=== PATIENT | female | born 1945 | race Caucasian/White ===

== ENCOUNTER 2023-08-18 06:12 | Day surgery (SDC) | payer MEDICARE, OTHER, SELFPAY ==
[2023-08-18] VITALS (16 sets, daily range): BP systolic 120–170; BP diastolic 60–89; BMI 31.2
[2023-08-18 07:06] LABS: Glucose - Point of Care 102 mg/dl (70-99)
[2023-08-18] MEDS: NSS 255 ML IV (07:10)
[2023-08-18 08:27] LABS: ACT-LR - POC 281 Seconds (116-155)
[2023-08-18 09:09] LABS: ACT-LR - POC > 397 Seconds (116-155)
[2023-08-18] MEDS: ZOFRAN 4 MG IV (09:33)
[2023-08-18] MEDS: NSS 640 IV (09:34)
[2023-08-18] MEDS: MORPHINE SULFATE 2 MG IV (09:35)
--- NOTE | 2023-08-18 10:28 | ITS.CL.ANGIO ---
[employer] - Angioplasty
Angioplasty
Procedure Report:
Cardiac Catheterization/PCI Report
Patient was correctly identified and procedure time out was taken. Informed consent signed. Correct site and side were identified and marked, if applicable. Equipment at bedside. Correct patient position. Relevant images and results reviewed prior
to procedure. Patient history and medications reviewed. Informed consent process consisted of informing the patient of risks of the procedure including, but not limited to infection, bleeding, , myocardial infarction, stroke, pericardial
tamponade, need for further procedures. Benefits of the procedure include relief of angina, improvement of heart function, improvement of quality of life. The possibility of needing transfer to higher level of care was also discussed. After the
explanation of risks and benefits, the patient agreed to proceed.
Date of Procedure: [08/18/2023]
Primary Care Physician: Unknown
Referring Physician: Dr. Nubia Coker
Procedures performed:
1: Coronary angiography
2: PCI with HARMAN to the right coronary artery.
3: Conscious sedation
INDICATION: Worsening angina
ACCESS: Martin's test was performed prior to the procedure and the patient was found to be suitable for right radial access. The patient was prepped and draped in usual sterile fashion. A 6 Greek sheath was placed in the right radial artery using
the Seldinger [place] [address] units of heparin was given for anticoagulation. A cocktail of 2 mg of verapamil and 200 mcg of nitroglycerin was administered preprocedure.
HEMODYNAMIC FINDINGS (mmHg):
Ao(s/d,m): 158/90 with a mean of 111
ANGIOGRAPHIC FINDINGS:
Percutaneous Coronary Intervention (PCI) description:�This was a planned PCI.
Using an AR-1 guiding catheter, right coronary artery was engaged. Right coronary angiography was performed. There is a 20 to 30% in-stent restenosis of the previously placed right coronary artery stent. In the distal RCA, there was a 90% focal
stenosis with an area of poststenotic dilatation just distally to the lesion. Large PDA and large PLV were free of disease.
Using a run-through wire, the lesion was successfully crossed. We then took a 2.0 x 15 mm balloon to perform a first predilatation. The lesion expanded nicely. To better prepped the lesion, we took a 2.5 x 15 mm noncompliant balloon up to 16 harinder.
Post balloon inflation there is no dissection or perforation. We then took a 3.0 x 23 mm Xience drug-eluting stent and successfully deployed at across the lesion taking care to overlap with the previously placed stent. The stent was then
postdilated using a 3.25 x 20 mm noncompliant balloon to 18 harinder. Post balloon deployment, there is no dissection or perforation with SCOTTIE-3 flow.
Culprit lesion: RCA
Guide catheter: AR-1
Stent placed: 3.0 x 23 mm
Pre % stenosis: 90%
Pre SCOTTIE flow: 3
Post PCI residual stenosis: 0%
Post PCI SCOTTIE flow: 3
DAP (cGy-cm2): 38.4782
Flouroscopy Time (min): 20.8 minutes
Radiation Dose: 633.79 mGy
Contrast Used: 100 cc
Complications: None
Closure device: None. A TR band was applied for hemostasis at the right wrist.
ASSESSMENT:
1: Successful PCI with HARMAN to the right coronary artery lesion with excellent angiographic result.
2: Conscious sedation administration
CONCLUSIONS and RECOMMENDATIONS:
1: Continue aspirin 81 mg daily (, Plavix 25 mg for at least 1 year.
2: Maximize medical therapy
Conscious Sedation:
I was present with the patient for the duration of the moderate sedation and supervised staff who monitored the patient for the entire procedure. Details of sedation are entered by the nurse administering the sedation and details of the patient's
monitoring status are entered by a sign monitor role staff member into the [facility] laboratory electronic record system. Please see the nursing flow sheets for documentation of the name of the independent trained observer, and intra-service start and
end times.
I administered moderate sedation throughout this 53 minute procedure. An independent trained observer administered medications at my direction, and monitored, along with the monitor role staff member, the patient's level of consciousness and
physiological status throughout.
[2023-08-18] MEDS: NEURONTIN 300 MG PO ×2 (16:33→22:14)
--- NOTE | 2023-08-18 16:35 | CM ---
CM following for DC planning needs.
Met w/ patient at bedside to complete initial assessment.
Pt. resides in a private home alone. She is functionally indep. w/ ADLs, mobilities without the use of any assisted device; + drives.
Pt. has Rx plan and uses [facility] in [facility].
Anticipate DC to home; has transport home.
No needs identified.
CM to follow.
[2023-08-18] MEDS: LIPITOR 40 MG PO (18:33)
[2023-08-18] MEDS: ZETIA 10 MG PO (18:33)
[2023-08-18] MEDS: COZAAR 50 MG PO (19:58)
[2023-08-19 03:49] VITALS: BP 149/78
--- NOTE | 2023-08-19 04:31 | PTCARENOTE ---
No complaints of chest pain overnight, VSS, NSR on the monitor. Right radial cath site dressing CDI with no drainage or signs of hematoma, radial pulse strong, sensation intact. Pt. sleeping most of the night.
[2023-08-19 04:42] LABS: Hematocrit 35.2 % (37.0-47.0); Hemoglobin 11.7 g/dL (12.0-16.0); Mean Corp Hgb Conc. 33.2 g/dL (33.0-37.0); Mean Corpuscular Hgb 29.5 pg (27.0-31.0); Mean Corpuscular Volume 88.9 fL (81.0-99.0); Mean Platelet Volume 8.6 fL (7.4-10.4); Platelet Count 195 10^3/uL (130-400); Red Blood Cell Count 3.96 10^6/uL (4.20-5.40); Red Cell Dist. Width 13.1 % (11.5-14.5); White Blood Cell Count 5.3 10^3/uL (4.8-10.8)
[2023-08-19 05:17] LABS: Blood Urea Nitrogen 17 mg/dl (7-17); Calcium 9.2 mg/dl (8.4-10.2); Carbon Dioxide 25 mmol/L (22-30); Chloride 103 mmol/L (98-107); Estimated Creatinine Clearance 86 ml/min; Glucose 109 mg/dl (70-99); HDL Cholesterol 53 mg/dl; LDL Cholesterol, Calculated 27 mg/dl; Potassium 4.4 mmol/L (3.5-5.1); Sodium 136 mmol/L (135-145); Total Cholesterol 98 mg/dl (50-199); Triglyceride 91 mg/dl (10-149); Very Low Density Lipoprotein 18 mg/dl (0-30); eGFR > 60.00
[2023-08-19 05:43] VITALS: BMI 31.0
[2023-08-19] MEDS: SYNTHROID 125 MCG PO (05:45)
[2023-08-19 07:57] VITALS: BP 165/89
[2023-08-19] MEDS: PLAVIX 75 MG PO (08:07)
[2023-08-19] MEDS: COZAAR 50 MG PO (08:07)
[2023-08-19] MEDS: NEURONTIN 300 MG PO (08:07)
[2023-08-19] MEDS: TOPROL XL 25 MG PO (08:07)
[2023-08-19] MEDS: LOW STRENGTH ASPIRIN 81 MG PO (08:07)
--- NOTE | 2023-08-19 08:33 | W.PN.CARDCBS ---
Today's Communication / Plan
-
post PCI, stable for d/c home
Impression / Plan
-
PCP: Dr. Crabtree
CDY: Lalita Coker MD
77 yo WF h/o CAD/PCI, HTN, HLD, DM who had been having progressive exertional chest pain similar to previous stenting. She had cath at on 08/11 with new distal RCA stenosis which appeared calcified and she was brought to for possible
athrectomy/PCI on 08/17. She underwent angioplasty with stent x1 successfully.
Impression:
Chest pain
CAD prior PCI LAD 2018
-PCI RCA 2021
-cath 08/12/23 with distal RCA 90% stenosis
-s/p PCI distal RCA 3.0 x 23 mm Xience drug-eluting stent 08/18/23
HTN
HLD
DM2
Hypothyroidism
Diverticulitis/GIB 2017
Plan:
post PCI had some stretch pain and nausea post
no further chest pain this am
rad site stable
tele no ectopy
DAPT ASA/Plavix at least 1 year uninterrupted
continue losartan, metoprolol for HTN
Lipid profile good, LDL 27 continue atorvastatin and Zetia
Hold Metformin 48 hours post procedure
Activity restrictions reviewed
cardiac rehab c/s
f/u Dr. Coker in 2-4 weeks
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
Subjective
Date of Service: August 19, 2023
no cp, sob
Objective
Labs:
08/19/23 03:56
08/19/23 03:56
Labs
Hgb 11.7 g/dL (12.0-16.0) L 08/19/23 03:56
Hct 35.2 % (37.0-47.0) L 08/19/23 03:56
Plt Count 195 10^3/uL (130-400) 08/19/23 03:56
Sodium 136 mmol/L (135-145) 08/19/23 03:56
Potassium 4.4 mmol/L (3.5-5.1) 08/19/23 03:56
BUN 17 mg/dl (7-17) 08/19/23 03:56
Creatinine 0.6 mg/dL (0.6-1.0) 08/19/23 03:56
Glucose 109 mg/dl (70-99) H 08/19/23 03:56
Vital Signs and I&O:
Vital Signs
Temp Pulse Resp BP Pulse Ox
98.6 F 64 16 165/89 98
08/19/23 07:57 08/19/23 08:00 08/19/23 07:57 08/19/23 07:57 08/19/23 07:57
Vital Signs
Temp Pulse Resp BP Pulse Ox
98.6 F 64 16 165/89 98
08/19/23 07:57 08/19/23 08:00 08/19/23 07:57 08/19/23 07:57 08/19/23 07:57
Intake & Output
08/17/23 08/18/23 08/19/23 08/20/23
06:59 06:59 06:59 06:59
Intake Total 991 / 991
Balance 991 / 991
Physical Exam
Physical Exam
NAD, AOX3
S1, s2, RRR
CTAB, non labored, no wheeze
SNTND Bsx4
R rad site c/d/i good pulse, mild ecchymosis
--- NOTE | 2023-08-19 09:52 | CM ---
CM following for DC planning needs.
Pt. for DC to home today.
There are no identified DC needs.
PLAN: HOME, no needs.
--- NOTE | 2023-08-19 12:01 | W.DS.TRANS ---
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
-
Discharge Instructions:
Discharge Diagnosis/Procedures Atherectomy with angioplasty and stent to Right
Coronary artery
Diet Low Cholesterol,Diabetic, Carb Controlled
Driving Restrictions No driving for 24 hours
Other Services Cardiac Rehab
Instructions:
Stand-Alone Forms: DC Instructions- Cath/EP Lab
Changes to Home Medications: No
Discharge Medications:
DC Medications w/original date entered in [employer]
aspirin 81 mg chewable tablet 81 mg PO DAILY 08/18/23
atorvastatin 40 mg tablet 40 mg PO QPM 08/18/23
calcium carbonate (Calcium 600) 600 mg PO DAILY 08/18/23
cholecalciferol (vitamin D3) 50 mcg (2,000 unit) capsule (Vitamin D3) 50 mcg PO DAILY 08/18/23
clopidogrel 75 mg tablet 75 mg PO DAILY 08/18/23
coenzyme Q10 100 mg capsule (CoQ-10) 100 mg PO DAILY 08/18/23
cyanocobalamin (B12)-cobamamide 5,000 mcg-100 mcg sublingual tablet (B-12 Plus) 1 tab sublingual DAILY 08/18/23
ezetimibe 10 mg tablet 10 mg PO QPM 08/18/23
gabapentin 300 mg capsule 300 mg PO TID 08/18/23
levothyroxine 125 mcg tablet 125 mcg PO DAILY 08/18/23
losartan 50 mg tablet 50 mg PO BID 08/18/23
magnesium oxide 400 mg PO DAILY 08/18/23
metformin 500 mg tablet,extended release 24hr (osmotic) 1,000 mg PO QPM 08/18/23
metoprolol succinate 25 mg tablet,extended release 24 hr 25 mg PO DAILY 08/18/23
nitroglycerin 0.4 mg sublingual tablet 0.4 mg sublingual Q5-15M PRN chest pain 08/18/23
Home Medication Changes
Pending Results: No
== END 2023-08-19 11:51 | disposition home or self-care (01) ==
LOC: CATH 06:12
PROVIDERS: Nurse Practitioner; ATTENDING PHYSICIAN Internal Medicine Cardiovascular Disease; FAMILY PHYSICIAN Family Medicine; OTHER PHYSICIAN Internal Medicine Cardiovascular Disease
DX: I25.110 Atherosclerotic heart disease of native coronary artery with unstable angina pectoris (principal); Z95.5 Presence of coronary angioplasty implant and graft; I10 Essential (primary) hypertension; E78.5 Hyperlipidemia, unspecified; Z87.891 Personal history of nicotine dependence; Z79.82 Long term (current) use of aspirin; Z79.02 Long term (current) use of antithrombotics/antiplatelets; Z79.84 Long term (current) use of oral hypoglycemic drugs
CPT/HCPCS: 99152; 99153; C1725; C1887; 80048; 80061; 82962; 85027; 85347; 93005; C1874; C1894; C9600; Q9967